=== PATIENT | female | born 1990 | race Caucasian/White ===

== ENCOUNTER 2018-05-15 14:20 | Emergency (ER) | payer OTHER ==
--- NOTE | 2018-05-15 15:08 | PDOC ---
History of Present Illness - General History Source: Patient Exam Limitations: No Limitations - History of Present Illness Initial Comments: 05/15/18 15:33 The patient is a 27 year old female, with a significant past medical history of anorexia (in rehab), chronic constipation, scoliosis, SMA, and volvulus, who presents to the emergency department with, 1 week of constipation. As per patient, she recently moved to a new facility for her anorexia and her medications for her constipation have changed from Dulcolax TID and Miralax QID to Colace and Miralax (noncompliant with exact dosing). She notes associated nausea with one episode of emesis earlier in the week. Patient notes that she had an x-ray done earlier today which showed excess fluid in the abdomen. Patient was advised by the ELECTRICAL INTERN at her facility to report to the ER for a CT scan and further evaluation. She denies recent fevers, chills, headache or dizziness. She denies recent dysuria, frequency, urgency or hematuria. She denies recent chest pain or shortness of breath. Allergies: NKA Past surgical history: Tonsillectomy, endoscopy, colonoscopy. Social history: Anorexia. <Silverio Covington - Last Filed: 05/15/18 15:38> <Va Waggoner - Last Filed: 05/15/18 18:01> - General Chief Complaint: Constipation Stated Complaint: CONSTIPATION, EXCESS FLUID OF ABD Time Seen by Provider: 05/15/18 14:44 Past History <Silverio Covington - Last Filed: 05/15/18 15:38> - Past Medical History COPD: No GI Disorders: Yes (CHRONIC CONSTIPATION, SMA SYNDROME, TWISTED COLON) Psychiatric Problems: Yes (ANOREXIA) - Suicide/Smoking/Psychosocial Hx Smoking History: Never smoked Hx Alcohol Use: No Drug/Substance Use Hx: No Substance Use Type: None <aV Waggoner - Last Filed: 05/15/18 18:01> - Past Medical History Allergies/Adverse Reactions: Allergies Allergy/AdvReac Type Severity Reaction Status Date / Time No Known Allergies Allergy Verified 05/15/18 14:53 Home Medications: Ambulatory Orders Diazepam [Valium] 12.5 mg PO HS 05/15/18 Diphenhydramine HCl [Benadryl -] 25 mg PO HS 05/15/18 Docusate Sodium [Colace] 100 mg PO TID 05/15/18 Fluticasone Prop 0.05% Nasal [Flonase -] 2 spray NS DAILY 05/15/18 Gabapentin [Neurontin] 300 mg PO HS 05/15/18 Melatonin PO HS 05/15/18 Metoclopramide HCl [Reglan] 2.5 mg PO TID 05/15/18 Polyethylene Glycol 3350 [Miralax (For Daily Use) -] 17 gm PO TID 05/15/18 Spironolactone [Aldactone] 200 mg PO DAILY 05/15/18 Review of Systems - Review of Systems Able to Perform ROS?: Yes Comments:: 05/15/18 15:33 GENERAL/CONSTITUTIONAL: No fever or chills. No weakness. HEAD, EYES, EARS, NOSE AND THROAT: No change in vision. No ear pain or discharge. No sore throat. +GASTROINTESTINAL: Constipation. Nausea. Vomiting. GENITOURINARY: No dysuria, frequency, or change in urination. CARDIOVASCULAR: No chest pain or shortness of breath. RESPIRATORY: No cough, wheezing, or hemoptysis. MUSCULOSKELETAL: No joint or muscle swelling or pain. No neck or back pain. SKIN: No rash NEUROLOGIC: No headache, vertigo, loss of consciousness, or change in strength/ sensation. ENDOCRINE: No increased thirst. No abnormal weight change. HEMATOLOGIC/LYMPHATIC: No anemia, easy bleeding, or history of blood clots. ALLERGIC/IMMUNOLOGIC: No hives or skin allergy. All Other Systems: Reviewed and Negative <Silverio Covington - Last Filed: 05/15/18 15:38> *Physical Exam - Vital Signs Last Vital Signs Temp Pulse Resp BP Pulse Ox 98.5 F 91 H 18 98/63 99 05/15/18 14:38 05/15/18 14:38 05/15/18 14:38 05/15/18 14:38 05/15/18 14:38 - Physical Exam Comments: 05/15/18 15:33 Constitutional: Awake, alert, oriented. No acute distress. Head: Normocephalic. Atraumatic Eyes: PERRL. EOMI. Conjunctivae are not pale. ENT: Mucous membranes are moist and intact. Posterior pharynx without exudates or erythema. Uvula midline. Neck: Supple. Full ROM. No lymphadenopathy. Cardiovascular: Regular rate. Regular rhythm. S1, S2 regular. Distal pulses are 2+ and symmetric. Pulmonary/Chest: No evidence of respiratory distress. Clear to auscultation bilaterally No wheezing, rales or rhonchi. +Abdominal: Distended. Tympanic bowel sounds. There is no tenderness. No rebound, guarding or rigidity. No organomegaly. Back: No CVA tenderness. Rectal: Vault empty. No fissures. No hemorrhoids. Musculoskeletal: No edema. No cyanosis. No clubbing. Full range of motion in all extremities. No calf tenderness. Radial/pedal pulses are intact and 2+ bilaterally Skin: Skin is warm and dry. No petechiae. No purpura. Neurological: Alert and oriented to person, place, and time. Cranial nerves II -XII are grossly intact. Normal speech. Strength is grossly symmetric. No sensory deficits. Psychiatric: Good eye contact. Normal interaction, affect and behavior. <Silverio Covington - Last Filed: 05/15/18 15:38> - Vital Signs Last Vital Signs Temp Pulse Resp BP Pulse Ox 98.5 F 91 H 18 98/63 99 05/15/18 14:38 05/15/18 14:38 05/15/18 14:38 05/15/18 14:38 05/15/18 14:38 <Va Waggoner - Last Filed: 05/15/18 18:01> ED Treatment Course - ADDITIONAL ORDERS Additional order review: Laboratory Results 05/15/18 15:20 Urine HCG, Qual Negative <Silverio Covington - Last Filed: 05/15/18 15:38> - LABORATORY CBC & Chemistry Diagram: 05/15/18 15:35 05/15/18 15:35 <Va Waggoner - Last Filed: 05/15/18 18:01> Medical Decision Making - Medical Decision Making 05/15/18 15:50 a/p: 27yo female with hx of anorexia - currently in inpt hospitalization for anorexia at [facility] -pt with hx of chronic constipation, pt states she hasn't had a bm in days -arrived from inpt [place] last tuesday and they changed her bowel regimen and she hasn't had a bm since -uncle at the bedside who is a physician at [facility] - states hx of anxiety and emotional lability since she was young -states she was on a bowel regimen of dulcolax and miralax which kept her regular, but they changed her to colace and miralax and since the change she hasnt moved her bowels -nausea, 1 episode of vomiting, abd distension -hx of functional volvulus and hx of egd/colonoscopy -will send labs, ct abd/pelvis with iv and oral contrast -will monitor and reassess -no stool in rectum -outpt xray shows poss ascites vs constipation and rads recommended ct imaging 05/15/18 17:58 ct shows marked fecal retention without any other evidence of acute pathology. discussed labs and imaging with the patient and her uncle. will give a dose of dulcolax in the ed and magnesium citrate in the ED stable for d/c back to [facility] discussed labs with the patient and her uncle. answered all questions <Va Waggoner - Last Filed: 05/15/18 18:01> *DC/Admit/Observation/Transfer - Attestations Scribe Attestion: 05/15/18 15:34 Documentation prepared by Silverio Covington, acting as medical coder for Va Waggoner DO. <Silverio Covington - Last Filed: 05/15/18 15:38> - Discharge Dispostion Decision to Admit order: No - Attestations Physician Attestion: 05/15/18 18:00 I, Dr. Va Waggoner DO, attest that this document has been prepared under my direction and personally reviewed by me in its entirety. I further attest, that it accurately reflects all work, treatment, procedures and medical decision -making performed by me. <Va Waggoner - Last Filed: 05/15/18 18:01> Diagnosis at time of Disposition: Constipation - Discharge Dispostion Disposition: HOME Condition at time of disposition: Stable - Referrals Referrals: Thor Wren MD [Staff Physician] - Brian Aly MD [Staff Physician] - - Patient Instructions Printed Discharge Instructions: DI for Constipation Additional Instructions: Please drink plenty of fluids. Please add dulcolax into your GI regimen. Please follow up with the former hand. Please return to the ED with any further concerns or complaints.
[2018-05-15] MEDS ORDERED: SIMETHICONE 80 MG TAB.CHEW (FP) PO ONE (15:22)
[2018-05-15] MEDS ORDERED: SODIUM CHLORIDE 0.9% 1000 ML INFUS.BAG IV ONE (15:22)
[2018-05-15 15:32] LABS: HCG,QUALITATIVE URINE Negative
[2018-05-15 15:37] LABS: URINE APPEARANCE Clear; URINE BILIRUBIN Negative (NEGATIVE); URINE COLOR Yellow; URINE GLUCOSE (UA) Negative (NEGATIVE); URINE KETONE Negative (NEGATIVE); URINE LEUK ESTERASE Negative (NEGATIVE); URINE NITRITE Negative (NEGATIVE); URINE PROTEIN Negative (NEGATIVE); URINE UROBILINOGEN 0.2 (0.2-1.0)
[2018-05-15] MEDS ORDERED: LORazepam 2 MG/ML SDV VIAL ONE (15:41)
[2018-05-15 15:42] LABS: BASO % 1.3 % (0-2.0); EOS % 1.2 % (0-4.5); HEMATOCRIT 32.2 % (32.4-45.2); HEMOGLOBIN 10.7 GM/dl (10.7-15.3); LYMPH % 24.3 % (8-40); MCH 33.3 pg (25.7-33.7); MCHC 33.2 g/dl (32.0-36.0); MEAN CELL VOLUME 100.3 fl (80-96); MEAN PLT VOLUME 7.2 fl (7.5-11.1); MONO % 7.7 % (3.8-10.2); NEUT % 65.5 % (42.8-82.8); PLATELET COUNT 349 K/MM3 (134-434); RBC 3.21 M/mm3 (3.60-5.2); RDW 15.3 % (11.6-15.6); WHITE BLOOD COUNT 5.6 K/mm3 (4.0-10.8)
[2018-05-15] MEDS ORDERED: SIMETHICONE 80 MG TAB.CHEW (FP) ONE (15:42)
[2018-05-15] MEDS ORDERED: diazePAM 2 MG TABLET PO ONE (15:46)
[2018-05-15] MEDS ORDERED: diazePAM 2 MG TABLET ONE (15:51)
[2018-05-15 16:01] LABS: ALBUMIN 4.3 g/dl (3.5-5.0); ALK PHOS 51 U/L (32-92); ANION GAP 8 MMOL/L (8-16); BILIRUBIN,TOTAL 0.5 mg/dl (0.2-1.0); BLOOD UREA NITROGEN 18 mg/dl (7-18); CALCIUM 9.3 mg/dl (8.4-10.2); CHLORIDE 102 mmol/L (98-107); CO2 25 mmol/L (22-28); GLUCOSE,RANDOM 86 mg/dl (74-106); POTASSIUM 4.8 mmol/L (3.5-5.1); SGOT/AST 25 U/L (10-42); SGPT/ALT 23 U/L (10-40); SODIUM 135 mmol/L (136-145)
[2018-05-15 16:04] LABS: CREATININE < 0.6 mg/dl (0.6-1.3)
[2018-05-15 16:12] VITALS: BP 98/63; PULSE 91; TEMP 98.5; BMI 13.9
[2018-05-15] MEDS ORDERED: BISACODYL 5 MG TABLET.DR (FP) PO ONE (17:57)
[2018-05-15] MEDS ORDERED: MAGNESIUM CITRATE 300 ML BOTTLE PO ONE (17:58)
[2018-05-15] MEDS ORDERED: MAGNESIUM CITRATE 300 ML BOTTLE ONE (18:10)
== END 2018-05-15 18:40 | disposition home or self-care (01) ==
LOC: FER 14:20
PROC: 3E0337Z Introduction of Electrolytic and Water Balance Substance into Peripheral Vein, Percutaneous Approach (ICD-10-PCS; principal; 2018-05-15)
DX: K59.00 Constipation, unspecified (principal); K55.1 Chronic vascular disorders of intestine; K56.2 Volvulus; R63.0 Anorexia; Z68.1 Body mass index [BMI] 19.9 or less, adult; Z91.14 Patient's other noncompliance with medication regimen
CPT/HCPCS: 36415; 74177-TC; 80053; 81003; 84703; 85025; 99284-25; J7030